=== PATIENT | male | born 1980 | race Caucasian/White ===

== ENCOUNTER 2025-02-10 11:44 | Emergency (ER) | payer SELFPAY ==
[2025-02-10 11:55] VITALS: BP 124/73; PULSE 75; RESP 16; TEMP 36.5; O2SAT 96
[2025-02-10] MEDS: Fluorescein STRIPS 100/BOX 1 MG OP (12:34)
[2025-02-10] MEDS: Tetracaine 0.5% 4 ML BTL OP (12:34)
--- NOTE | 2025-02-10 12:47 | W.ED.GENAD ---
Discharge Plan Disposition Patient Disposition: Home Condition: Stable Discharge Details Clinical Impression: DOV (subconjunctival hemorrhage), Chemosis of right conjunctiva Primary Care Provider: Usama Feliz ED Provider: Adwoa Berry Home Meds and New Rx's Prescriptions: No Action gabapentin 100 mg capsule 100 mg PO DAILY Patient Comments: Pt takes 100-600 mg daily multivitamin [Daily Multi-Vitamin] Tablet 1 tab PO DAILY cyclobenzaprine 10 mg tablet 10 mg PO ONCE PRN Discharge Instructions Instructions: Subconjunctival hemorrhage Additional Instructions: You were seen in the emergency department today for evaluation of eye irritation and were found to have an area of chemosis or swelling as well as a small subconjunctival hemorrhage. In our department had a full physical examination performed, your vision is preserved and you had a reassuring exam. I note no evidence of ulcerations or severe lacerations or other injury to the eye, and he did not have any foreign bodies in the eye. I have started you on a medication called erythromycin to help your eye heal after this irritation. You can also use cool compresses, and [id number] artificial tears. Some people like to keep the artificial tears in the fridge so that they are more soothing. Please contact [facility] to schedule a follow-up appointment, and please follow-up with your primary care provider in the next few days to discuss this visit and any symptoms that change, worsen, or persist. Thank you for allowing us to be part of your care. Discharge Data Discharge Date/Time-TO BE ENTERED AT DEPARTURE: 02/10/25 12:57 HPI General Mode of arrival: ambulatory. Date/Time Provider Initiated Documentation: 02/10/25 12:04. Limitations to Documentation: no limitations. Information obtained by: patient and old records reviewed. HPI Narrative: This is a 44-year-old male patient, previously healthy presenting for evaluation of a right eye problem. He reports that yesterday or the day before his eye felt slightly itchy, he rubbed it and when he looked in the mirror he noted some swelling of the eye as well as a red spot. He cannot recall any specific injury or foreign body sensation otherwise. He uses [id number]-eebsjed eyedrops and states that he put those in but they seemed quite irritating today. He has not noted any vision changes or blurriness, but did notice that he can see the swelling out of the peripheral vision. No pain with movement of the eyes, no fevers or chills, does not wear any corrective lenses or contacts. Related Data Home Medications ?Medication ?Instructions ?Recorded ?Confirmed cyclobenzaprine 10 mg tablet 10 mg PO ONCE PRN 02/10/25 02/10/25 gabapentin 100 mg capsule 100 mg PO DAILY 02/10/25 02/10/25 multivitamin (Daily Multi-Vitamin 1 tab PO DAILY 02/10/25 02/10/25 tablet) General Stated Complaint: EyeProblem DAPHNE: 4 Exam Narrative Exam Narrative: Gen: Awake and alert, in no apparent distress HEENT: Non-icteric sclera, PERRL, EOMs are full and without nystagmus or entrapment. The patient's right eye has evidence of mild chemosis to the inferior hemisphere, with a very small area of subconjunctival hemorrhage at the 7 o'clock position. Fluorescein staining reveals no uptake suggestive of abrasion or ulceration, no dendrites noted. There are no visualized foreign bodies. Clear tearing is appreciated from the right eye without purulent discharge. Left eye exam normal. Neck: Supple Lungs: No apparent respiratory distress, normal respiratory effort. CV: Appears well perfused Abdomen: Non-distended MSK: Moves 4 extremities without apparent limitation in ROM Skin: Visualized skin without rashes, cyanosis. Neuro: Normal Gait, no obvious focal deficits or facial asymmetry. Speaks in full, clear sentences. Psych: Appropriate for situation. Course Vital Signs Vital signs: Vital Signs Temperature 36.5 C 02/10/25 11:55 Pulse 75 02/10/25 11:55 Respiratory Rate 16 02/10/25 11:55 Blood Pressure 124/73 02/10/25 11:55 Pulse Oximetry 96 02/10/25 11:55 Temperature 36.5 C 02/10/25 11:55 Temperature Source Tympanic 02/10/25 11:55 Pulse 75 02/10/25 11:55 Respiratory Rate 16 02/10/25 11:55 Blood Pressure 124/73 02/10/25 11:55 Pulse Oximetry 96 02/10/25 11:55 Oxygen Delivery Method Room Air 02/10/25 11:55 Oxygen Flow Rate 0 02/10/25 11:55 Pain Level 1 02/10/25 11:55 Medical Decision Making This is a 44-year-old male patient presenting for evaluation of a eye irritation/swelling. My exam is most concerning for chemosis and some conjunctival hemorrhage. My differential also considered corneal abrasion or ulceration, though the exam is less consistent with this. I note no foreign bodies nor evidence of open globe injury given the negative Anna sign. The patient has no visual acuity changes, no significant eye pain or redness, or history of ocular abnormalities to suggest glaucoma, optic neuritis, CRAO/CRVO. Given that the patient has been rubbing and itching in his eye I think it is reasonable to give him some erythromycin ointment, And I counseled him on artificial tears and cool compresses. He will follow-up with his primary care provider and reach out to the ophthalmology clinic to schedule an appointment if things do not improve in the next few days. At this time, the patient has had a full medical evaluation and is safe for discharge to home. They are hemodynamically stable, ambulatory, and tolerating PO. They are understanding of the follow-up plan and return precautions. They left our facility without incident. Adwoa Berry MD [facility] All Active Problems (Updated 02/10/25 @ 12:48 by Adwoa Berry MD) Chemosis of right conjunctiva (Acute) DOV (subconjunctival hemorrhage) (Acute) Social History Smoking/Tobacco Use Status: Current every day Tobacco Type: cigarettes Smoking risk assessment performed?: Yes Alcohol Intake: former Drug use: Never Substance use type: does not use Do you feel safe at home: Yes Do you feel safe in your relationship?: Yes
[2025-02-10] MEDS: Erythromycin Ophth Oint 3.5 GM TUBE OD (12:53)
== END 2025-02-10 12:57 | disposition home or self-care (01) ==
PROVIDERS: Emergency Provider Emergency Medicine; PCP Internal Medicine Hematology & Oncology
DX: H11.31 Conjunctival hemorrhage, right eye (principal); H11.421 Conjunctival edema, right eye; F17.210 Nicotine dependence, cigarettes, uncomplicated
CPT/HCPCS: 99283